=== PATIENT | male | born 1975 | race American Indian/Alaskan Native ===

== ENCOUNTER 2018-09-29 13:22 | Emergency (ER) | payer MEDICAID ==
[2018-09-29 14:02] VITALS: BP 132/66
--- NOTE | 2018-09-29 15:15 | XRay Report ---
RIGHT KNEE, 3 views: History: Pain. The bony architecture is intact without evidence of fracture or dislocation. No significant soft tissue abnormality is seen. IMPRESSION: Normal right knee.
--- NOTE | 2018-09-29 15:17 | XRay Report ---
RIGHT HIP, 2 views: History: Postop pain. There are no exams for comparison. Right hip replacement has been performed. There is normal articulation at the right hip. The greater trochanter appears to be displaced laterally. Comparison with previous exams would be needed to assess if this is a new finding or unchanged since surgery. Otherwise, there is no evidence for fracture or dislocation. IMPRESSION: Right hip replacement as described. No obvious acute process.
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
[2018-09-29] MEDS ORDERED: PERCOCET 5/325 PO ONE (15:23)
[2018-09-29 15:26] LABS: Hematocrit 33.6 % (35.5-45.6); Hemoglobin 11.1 gm/dl (11.8-15.2); Mean Corpuscular HGB Conc 33 % (32-34); Mean Corpuscular Volume 94 fl (84-94); Platelet Count 499 K/mm3 (140-440); Red Blood Count 3.57 M/mm3 (3.65-5.03); Red Cell Distribution Width 14.9 % (13.2-15.2)
[2018-09-29 15:46] LABS: BUN/Creatinine Ratio 11; Blood Urea Nitrogen 9 mg/dL (9-20); Calcium 9.1 mg/dL (8.4-10.2); Hemolysis Index 0
== END 2018-09-29 17:23 | disposition home or self-care (01) ==
LOC: EDBD → ED 13:22
DX: M25.551 Pain in right hip (principal); M25.561 Pain in right knee; R00.0 Tachycardia, unspecified; Z88.1 Allergy status to other antibiotic agents
CPT/HCPCS: 36415; 80048; 85027

== ENCOUNTER 2019-02-10 01:41 | Emergency (ER) | payer MEDICAID ==
[2019-02-10 01:57] VITALS: BP 172/97
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
--- NOTE | 2019-02-10 02:48 | XRay Report ---
PROCEDURE: PELVIS WITH BILATERAL HIPS TECHNIQUE: Bilateral hip radiographs, 2 views each, including AP view of the pelvis. CPT 35038 HISTORY: Hip pain COMPARISONS: September 29, 2018 . FINDINGS: There has been bilateral hip replacement surgery. The hardware is intact. There are no acute fracture s. There is no dislocation. Bony pelvis is intact. The soft tissues are unremarkable. IMPRESSION: Hip replacement hardware is intact. There is no acute injury. . This document is electronically signed by Nicho Betancur MD., Feb 10 2019 02:46:52 AM ET
== END 2019-02-10 05:15 | disposition left against medical advice (07) ==
LOC: ED 01:41
DX: M25.552 Pain in left hip (principal); Z53.21 Procedure and treatment not carried out due to patient leaving prior to being seen by health care provider
CPT/HCPCS: 73521

== ENCOUNTER 2019-04-26 09:53 | Outpatient (CLI) | payer OTHER | END 2019-04-26 09:54 | disposition home or self-care (01) | LOC: PF 09:53 | PROVIDERS: ATTEND Internal Medicine | DX: J44.9 Chronic obstructive pulmonary disease, unspecified (principal) | CPT/HCPCS: 94010; 94729 ==

== ENCOUNTER 2020-07-14 00:26 | Emergency (ER) | payer MEDICAID, OTHER ==
[2020-07-14] MEDS ORDERED: ASPIRIN 325 MG TAB PO ONE (02:14)
[2020-07-14 02:42] LABS: Basophils # (Auto) 0.1 K/mm3 (0.0-0.1); Basophils % (Auto) 0.9 % (0.0-1.8); Eosinophils # (Auto) 0.3 K/mm3 (0.0-0.4); Eosinophils % (Auto) 4.6 % (0.0-4.3); Hematocrit 42.1 % (35.5-45.6); Hemoglobin 14.1 gm/dl (11.8-15.2); Lymphocytes % (Auto) 41.5 % (13.4-35.0); Mean Corpuscular HGB Conc 34 % (32-34); Mean Corpuscular Volume 93 fl (84-94); Monocytes # (Auto) 0.8 K/mm3 (0.0-0.8); Monocytes % (Auto) 10.3 % (0.0-7.3); Platelet Count 346 K/mm3 (140-440); Red Blood Count 4.51 M/mm3 (3.65-5.03); Red Cell Distribution Width 13.1 % (13.2-15.2)
--- NOTE | 2020-07-14 02:46 | XRay Report ---
[ CHEST 1 VIEW INDICATION / CLINICAL INFORMATION: Chest Pain. COMPARISON: None available. FINDINGS: SUPPORT DEVICES: None. HEART / MEDIASTINUM: No significant abnormality. LUNGS / PLEURA: No significant pulmonary or pleural abnormality.. No pneumothorax. ADDITIONAL FINDINGS: No significant additional findings. IMPRESSION: 1. No acute findings. Signer Name: Josiah Hector MD Signed: 07/14/2020 2:42 AM Workstation Name: [id number]
[2020-07-14 02:57] LABS: BUN/Creatinine Ratio 11; Blood Urea Nitrogen 10 mg/dL (9-20); Hemolysis Index 97
--- NOTE | 2020-07-14 06:48 | Emergency Department Report ---
ED Chest Pain HPI - General Chief Complaint: Chest Pain Stated Complaint: CHEST PAIN/DIZZINESS Time Seen by Provider: 07/14/20 06:07 Source: patient Mode of arrival: Ambulatory Limitations: No Limitations - History of Present Illness Initial Comments: Patient is a 44-year-old F [place] male with a past medical history of HIV hypertension who is presenting with 24 hours of chest discomfort. States he is feeling palpitations associated with dizziness and tingling of his hands and feet. Is been off and on for the last 24 hours. Patient was asked ap proximately 3-4 times if we are able to check his viral load. There is no exertional component or pleuritic component to his chest discomfort. Denies nausea vomiting diarrhea diaphoresis cough cold or congestion. - Related Data Previous Rx's Medication Instructions Recorded Last Taken Type Oxycodone HCl/Acetaminophen 1 each PO Q6HR PRN #12 tablet 09/29/18 Unknown Rx [Percocet 2.5/325 mg] hydrOXYzine PAMOATE [Vistaril] 25 mg PO Q6HR PRN #14 capsule 07/14/20 Unknown Rx Allergies Allergy/AdvReac Type Severity Reaction Status Date / Time tetracycline Allergy Unknown Verified 09/29/18 13:52 Heart Score - HEART Score History: Slightly suspicious EKG: Normal Age: < 45 Risk factors: 1-2 risk factors Troponin: < normal limit HEART Score: 1 ED Review of Systems ROS: Stated complaint: CHEST PAIN/DIZZINESS Other details as noted in HPI Comment: All other systems reviewed and negative ED Past Medical Hx - Past Medical History Previous Medical History?: Yes Hx Hypertension: Yes Additional medical history: fluid drained from lungs--HIV. 'heart valve problem' - Surgical History Past Surgical History?: Yes Hx Appendectomy: Yes Additional Surgical History: sarah hip pin placement. right hip replacement - Social History Smoking Status: Never Smoker Substance Use Type: None - Medications Home Medications: Home Medications Medication Instructions Recorded Confirmed Last Taken Type Oxycodone HCl/Acetaminophen 1 each PO Q6HR PRN #12 tablet 09/29/18 Unknown Rx [Percocet 2.5/325 mg] hydrOXYzine PAMOATE [Vistaril] 25 mg PO Q6HR PRN #14 capsule 07/14/20 Unknown Rx ED Physical Exam - General Limitations: No Limitations General appearance: alert, in no apparent distress - Head Head exam: Present: atraumatic, normocephalic - Eye Eye exam: Present: normal appearance - ENT ENT exam: Present: mucous membranes moist - Neck Neck exam: Present: normal inspection - Respiratory Respiratory exam: Present: normal lung sounds bilaterally. Absent: respiratory distress, wheezes, rales, rhonchi - Cardiovascular Cardiovascular Exam: Present: regular rate, normal rhythm, normal heart sounds. Absent: systolic murmur, diastolic murmur, rubs, gallop - GI/Abdominal GI/Abdominal exam: Present: soft, normal bowel sounds. Absent: distended, tenderness, guarding, rebound - Rectal Rectal exam: Present: deferred - Extremities Exam Extremities exam: Present: normal inspection - Back Exam Back exam: Present: normal inspection - Neurological Exam Neurological exam: Present: alert, oriented X3 - Psychiatric Psychiatric exam: Present: normal affect, normal mood - Skin Skin exam: Present: warm, dry, intact, normal color. Absent: rash ED Course Vital Signs 07/14/20 02:14 Temperature 97.9 F Pulse Rate 78 Respiratory 16 Rate Blood Pressure 136/98 O2 Sat by Pulse 97 Oximetry ED Medical Decision Making - Lab Data Result diagrams: 07/14/20 02:23 07/14/20 02:23 Lab Results 07/14/20 07/14/20 07/14/20 Range/Units 02:23 02:23 05:29 WBC 7.3 (4.5-11.0) K/mm3 RBC 4.51 (3.65-5.03) M/mm3 Hgb 14.1 (11.8-15.2) gm/dl Hct 42.1 (35.5-45.6) % MCV 93 (84-94) fl MCH 31 (28-32) pg MCHC 34 (32-34) % RDW 13.1 L (13.2-15.2) % Plt Count 346 (140-440) K/mm3 Lymph % (Auto) 41.5 H (13.4-35.0) % [place] % (Auto) 10.3 H (0.0-7.3) % Eos % (Auto) 4.6 H (0.0-4.3) % Baso % (Auto) 0.9 (0.0-1.8) % Lymph # (Auto) 3.0 (1.2-5.4) K/mm3 [place] # (Auto) 0.8 (0.0-0.8) K/mm3 Eos # (Auto) 0.3 (0.0-0.4) K/mm3 Baso # (Auto) 0.1 (0.0-0.1) K/mm3 Seg Neutrophils % 42.7 (40.0-70.0) % Seg Neutrophils # 3.1 (1.8-7.7) K/mm3 Sodium 141 (137-145) mmol/L Potassium 4.1 (3.6-5.0) mmol/L Chloride 104.0 (98-107) mmol/L Carbon Dioxide 23 (22-30) mmol/L Anion Gap 18 mmol/L BUN 10 (9-20) mg/dL Creatinine 0.9 (0.8-1.3) mg/dL Estimated GFR > 60 ml/min BUN/Creatinine Ratio 11 % Glucose 99 (75-100) mg/dL Calcium 9.0 (8.4-10.2) mg/dL Troponin T < 0.010 < 0.010 (0.00-0.029) ng/mL - EKG Data -: EKG Interpreted by Sd EKG shows normal: sinus rhythm, axis, intervals, QRS complexes, ST-T waves Rate: normal - EKG Data Interpretation: normal EKG - Radiology Data Ordering Physician: ED MD KERRY Date of Service: 07/14/20 Procedure(s): XR chest 1V ap Accession Number(s): [id number] cc: ED MD KERRY Fluoro Time In Minutes: [ CHEST 1 VIEW INDICATION / CLINICAL INFORMATION: Chest Pain. COMPARISON: None available. FINDINGS: SUPPORT DEVICES: None. HEART / MEDIASTINUM: No significant abnormality. LUNGS / PLEURA: No significant pulmonary or pleural abnormality.. No pneumothorax. ADDITIONAL FINDINGS: No significant additional findings. IMPRESSION: 1. No acute findings. Signer Name: Josiah Hector MD Signed: 07/14/2020 2:42 AM Workstation Name: [id number] - Medical Decision Making Patient has a normal EKG and 2 normal troponins ruling out acute myocardial infarction. Chest x-ray is within normal limits. Not see evidence of pleural effusion pulmonary edema cardiomegaly. No evidence of pneumonia. Patient with a low heart score confident that the patient is stable for discharge. Symptoms most consistent with anxiety but will be given the patient cardiology for follow-up. Critical care attestation.: If time is entered above; I have spent that time in minutes in the direct care of this critically ill patient, excluding procedure time. ED Disposition Clinical Impression: Atypical chest pain Disposition: TO HOME OR SELFCARE Is pt being admited?: No Does the pt Need Aspirin: No Condition: Stable Instructions: Chest Pain (ED), Anxiety (ED) Additional Instructions: Your symptoms are most consistent with anxiety. However please follow-up with cardiology to rule out any valve abnormalities or narrowing of your coronary art eries. You have been ruled out for heart attack pneumonia pericarditis as well as fluid on the lungs. Prescriptions: hydrOXYzine PAMOATE [Vistaril] 25 mg PO Q6HR PRN #14 capsule PRN Reason: Palpitations Referrals: IBETH HERNANDEZ MD [Staff Physician] - 3-5 Days Time of Disposition: 06:48
[2020-07-14 07:44] VITALS: BP 118/80
== END 2020-07-14 07:43 | disposition home or self-care (01) ==
LOC: ED 00:26
DX: R07.89 Other chest pain (principal); I10 Essential (primary) hypertension; Z90.49 Acquired absence of other specified parts of digestive tract; Z98.890 Other specified postprocedural states; Z88.1 Allergy status to other antibiotic agents
CPT/HCPCS: 36415; 71045; 80048; 84484; 85025; 93005